=== PATIENT | male | born 1980 | race African-American/Black ===

== ENCOUNTER 2021-01-04 23:28 | Emergency (ER) | payer SELFPAY ==
[~2021-01-04] VITALS: Ht 177.8 cm; Wt 72.2 kg
[2021-01-05] MEDS ORDERED: IV NORMAL SALINE 1000ML BAG 1,000 ML IV ONE (07:45)
[2021-01-05] MEDS ORDERED: FAMOTIDINE 20 MG/2 ML VIAL IVP ONE (07:45)
[2021-01-05] MEDS ORDERED: ONDANSETRON PF 4 MG/2 ML VIAL. IVP ONE (07:45)
[2021-01-05] MEDS ORDERED: KETOROLAC 15 MG/ML VIAL. IVP ONE (07:45)
--- NOTE | 2021-01-05 07:47 | PHYS DOC ---
Past Medical History Past Medical History: Alcoholism Past Surgical History: No Surgical History Smoking Status: Current Every Day Smoker Alcohol Use: Heavy Additional Information: BEER AND WHISKEY DAILY Drug Use: None General Adult EDM: Chief Complaint: ABDOMINAL PAIN HPI: HPI: 40-year-old male presents with report of bright red blood per rectum that has been ongoing for the past week. Patient reports some abdominal discomfort at that time. Reports pain became significantly worse over the last 1.5 days. Patient reports some associated nausea and vomiting that started last night. Patient reports abdomen exquisitely tender. Reports some generalized malaise wi th subjective fever/chills. Patient also reports associated headache. Patient reports he drinks daily with beer and whiskey. Patient denies trauma. Patient denies known exposure to COVID-19. Patient reports he received both [employer] vaccinations ending December 23, 2020. Review of Systems: Review of Systems: Constitutional: Reports subjective fever/chills Eyes: Denies redness or eye pain HENT: Denies nasal congestion or sore throat Respiratory: Denies cough or shortness of breath Cardiovascular: Denies chest pain or palpitations GI: Reports abdominal pain worse to right side, nausea, vomiting, diarrhea, and hematochezia : Denies dysuria or hematuria Musculoskeletal: Denies back pain or joint pain Integument: Denies rash or skin lesions Neurologic: Reports headache; denies focal weakness or sensory changes Complete systems were reviewed and found to be within normal limits, except as documented in this note. Heart Score: C/O Chest Pain: N/A Current Medications: Current Medications Medications (Trade) Dose Ordered Sig/Arnie Start Time Stop Time Status Last Admin Dose Admin Famotidine (Pepcid Vial) 20 mg 1X ONCE 01/05/21 07:45 01/05/21 07:46 UNV Ketorolac Tromethamine (Toradol 15mg Vial) 15 mg 1X ONCE 01/05/21 07:45 01/05/21 07:46 UNV Ondansetron HCl (Zofran) 4 mg 1X ONCE 01/05/21 07:45 01/05/21 07:46 UNV Sodium Chloride 1,000 ml @ 1,000 mls/hr 1X ONCE 01/05/21 07:45 01/05/21 08:44 UNV Physical Exam: PE: Constitutional: Well developed, well nourished, appears uncomfortable, non-toxic appearance HENT: Normocephalic, atraumatic Eyes: Conjunctiva normal, no discharge Neck: Normal range of motion, supple, no meningeal signs Lungs & Thorax: No respiratory distress, equal chest rise and fall Abdomen: Soft, diffuse tenderness but worse to right side Skin: Warm, dry, no erythema, no rash Extremities: No tenderness, ROM intact, no edema Neurologic: Alert and oriented X 3, no focal deficits noted Psychologic: Affect normal, judgment normal Current Patient Data: Vital Signs: Vital Signs Date Time Temp Pulse Resp B/P (MAP) Pulse Ox O2 Delivery O2 Flow Rate FiO2 01/05/21 07:17 97.9 94 16 125/90 97 Room Air 97.9 EKG: EKG: [] Radiology/Procedures: Radiology/Procedures: [] Course & Med Decision Making: Course & Med Decision Making Pertinent Labs and Imaging studies reviewed. (See chart for details) Patient presents with diffuse abdominal pain worse to right side with associated nausea/vomiting and subjective fever/chills. Patient also reporting 1 week history of hematochezia. Patient does report daily drinking. Patient denies known exposure to COVID-19. Patient reports he has received both [employer] vaccinations ending 12/23/20. Concern for pancreatitis. Pain/nausea addressed. IV fluid hydration given. Labs obtained and posted to chart. CT chest/abdomen/pelvis obtained with findings Cannot fully exclude COVID-19. Covid testing obtained COVID-19 CRITERIA: The patient was evaluated during the global COVID-19 pandemic, and that diagnosis was suspected/considered upon their initial presentation. Their evaluation, treatment and testing was consistent with current guidelines for patients who present with complaints or symptoms that may be related to COVID-19. Dragon Disclaimer: Dragon Disclaimer: This electronic medical record was generated, in whole or in part, using a voice recognition dictation system. Departure Departure Impression: Primary Impression: Abdominal pain Qualified Codes: R10.9 - Unspecified abdominal pain Additional Impressions: Alcohol abuse Abnormal finding on radiology exam Rectal bleeding Disposition: HOME / SELF CARE / HOMELESS Condition: STABLE Referrals: NO PCP (PCP) MERI CEBALLOS MD Patient Instructions: Abdominal Pain, Ihjo-rz-Diat, Alcohol and Drug Addiction, Finding Treatment, Alcohol, FAQs, Alcoholic Gastritis-Brief, Rectal Bleeding, [id number] Additional Instructions: Please call [facility] at to seek help for your mental health and/or drug/alcohol abuse. Scripts Hydrocortisone Acetate (ANUSOL-HC) 25 Mg Supp.rect 1 SUPP RC BID PRN for RECTAL BLEEDING for 7 Days, #14 SUPP 0 Refills Prov: REDD YEAGER DO 01/05/21 Hyoscyamine Sulfate (LEVSIN-SL) 0.125 Mg Tab.subl 0.125 MG SL Q4-6HRS PRN for PAIN, #14 TAB Prov: REDD YEAGER DO 01/05/21 Ondansetron (ONDANSETRON ODT) 4 Mg Tab.rapdis 1 TAB PO PRN Q6-8HRS PRN for NAUSEA, #16 TAB Prov: REDD YEAGER DO 01/05/21 Pantoprazole Sodium (PROTONIX ) 40 Mg Tablet. 40 MG PO DAILYAC for GERD, #30 TAB Prov: REDD YEAGER DO 01/05/21 REDD YEAGER DO Jan 05, 2021 07:47
[2021-01-05 08:01] LABS: BILIRUBIN,URINE NEGATIVE (NEG); CLARITY,URINE CLEAR; COLOR,URINE YELLOW; NITRITE,URINE NEGATIVE (NEG); PROTEIN,URINE NEGATIVE (NEG-TRACE); UROBILINOGEN,URINE 0.2 mg/dL (0.2 mg/dL)
[2021-01-05 08:20] LABS: BASO # 0.1 x10^3/uL (0.0-0.2); BASO % 4 % (0-3); EOS # 0.1 x10^3/uL (0.0-0.7); EOS % 3 % (0-3); HEMATOCRIT 39.5 % (39.0-53.0); HEMOGLOBIN 12.9 g/dL (13.0-17.5); LYMPH # 1.5 x10^3/uL (1.0-4.8); LYMPH % 40 % (24-48); MEAN CORPUSCULAR HEMOGLOBIN 28 pg (25-35); MEAN CORPUSCULAR HGB CONC 33 g/dL (31-37); MEAN CORPUSCULAR VOLUME 86 fL (79-100); MONO # 0.5 x10^3/uL (0.0-1.1); MONO % 14 % (0-9); NEUT # 1.4 x10^3/uL (1.8-7.7); NEUT % 39 % (31-73); PLATELET COUNT 403 x10^3/uL (140-400); RED BLOOD COUNT 4.57 x10^6/uL (4.30-5.70); RED CELL DISTRIBUTION WIDTH 19.7 % (11.5-14.5); WHITE BLOOD COUNT 3.6 x10^3/uL (4.0-11.0)
[2021-01-05 08:20] LABS: BACTERIA,URINE 0 /HPF (0-FEW); RBC,URINE 0 /HPF (0-2); WBC,URINE 0 /HPF (0-4)
[2021-01-05 08:26] LABS: CALCIUM 8.3 mg/dL (8.5-10.1); CREATININE 0.7 mg/dL (0.7-1.3); GFR 149.6; POTASSIUM 4.3 mmol/L (3.5-5.1)
[2021-01-05] MEDS ORDERED: IOHEXOL 300 MG/ML 100ML VIAL. IV ONE (08:30)
[2021-01-05 08:41] LABS: ALBUMIN 3.2 g/dL (3.4-5.0); ALBUMIN/GLOBULIN RATIO 0.7 (1.0-1.7); MAGNESIUM 1.9 mg/dL (1.8-2.4); TOTAL BILIRUBIN 0.3 mg/dL (0.2-1.0); TOTAL PROTEIN 7.5 g/dL (6.4-8.2)
--- NOTE | 2021-01-05 09:27 | RAD ---
CT CHEST+ABD+PELVIS W Clinical Indication: Right-sided pain COMPARISON: None TECHNIQUE: Multiple contiguous axial images were obtained throughout the chest, abdomen, and pelvis with the use of IV contrast. Axial images were reformatted into coronal and sagittal planes. 75 mL Omnipaque 300 was administered. One or more of the following dose reduction techniques were utilized: Automated exp osure control (AEC), Adjustment of mA and/or kV according to patient size, Use of iterative reconstru ction technique such as ASiR, CT scan done according to ALARA and image gently/image wisely. Findings: The thyroid is symmetric. Mediastinal and bilateral hilar lymphadenopathy, for example right lower pa ratracheal lymph node measures 1.0 cm short axis (series 2 image 22) and right hilar lymph node measu res 1.3 cm short axis (image 27). The thoracic aorta diameter is normal. The cardiac size is normal. There is no pericardial effusion. The central airways are patent. No pulmonary mass or consolidation. There are a couple of small indeterminate pulmonary nodules with traveling representative nodule as follows: Right upper lobe 3 mm solid nodule (image 15). Calcified pulmonary granulomas. No pleural effusion is observed. There is no pneumothorax. The liver, gallbladder, spleen, pancreas, and adrenal glands are unremarkable. The kidneys are unrem arkable. There is no significant mesenteric or retroperitoneal adenopathy identified. There is no e vidence of free intraperitoneal fluid or pneumoperitoneum. Visualized portions of the bowel are charlie sly unremarkable. Bladder is unremarkable. There is no significant pelvic ascites. No significant iliac or inguinal a denopathy is identified. No acute osseous abnormality. Chronic deformity of the left hip/pelvis including the iliac crest, liv tabulum, and proximal femur with severe degenerative changes. IMPRESSION: 1. Mediastinal and bilateral hilar lymphadenopathy of indeterminate etiology. This may be reactive to a prior infectious or inflammatory process, including granulomatous disease (given coexistent calcif ied pulmonary granulomas). Other considerations would include lymphoproliferative disorder or metasta tic disease if there is a history of malignancy. Comparison with prior imaging would be helpful, or c onsider 2-3 month follow-up chest CT to assess stability. 2. There are a couple of tiny noncalcified pulmonary nodules. Attention on follow-up versus compariso n imaging. 3. Chronic left hip deformity with severe degenerative changes may be posttraumatic, congenital, or a process such as old [id number] disease Electronically signed by: Cristino Stringer MD (01/05/2021 9:25 AM) [id number]
[2021-01-05 10:00] VITALS: BP 106/68
[2021-01-05] MEDS ORDERED: PANT40TA77 PO (10:38)
[2021-01-05] MEDS ORDERED: HYDR25SU18 RC (10:38)
[2021-01-05] MEDS ORDERED: HYOS0.1265 SL (10:38)
[2021-01-05] MEDS ORDERED: ONDA4TAB12 PO (10:38)
[2021-01-05 12:27] LABS: % ATYL 59 % (0-0); % LYMPHS 1 % (24-48); % MONOS 5 % (0-10); % OTHERS 35 % (0-0); PLT ESTIMATE INCREASED (ADEQUATE)
--- NOTE | 2021-01-06 17:54 | NUR ---
IP: Attempted to contact pt concerning covid results. Phone is not accepting calls at this time,
== END 2021-01-05 11:01 | disposition home or self-care (01) ==
LOC: ER 23:28
DX: R10.84 Generalized abdominal pain (principal); Z20.822 Contact with and (suspected) exposure to COVID-19; K62.5 Hemorrhage of anus and rectum; R93.89 Abnormal findings on diagnostic imaging of other specified body structures; F10.20 Alcohol dependence, uncomplicated; Y90.8 Blood alcohol level of 240 mg/100 ml or more; R11.2 Nausea with vomiting, unspecified; R53.81 Other malaise; F17.200 Nicotine dependence, unspecified, uncomplicated
CPT/HCPCS: 36415; 71260; 74177; 80053; 81001; 83605; 83690; 83735; 85007; 85025; 87426; 96361; 96374; 96375; 99285; G0480; J1885; J2405; J3490; J7030; Q9967; U0003; U0005